=== PATIENT | male | born 1990 | race Two or more races ===

== ENCOUNTER 2017-06-20 08:11 | Emergency (ER) | payer SELFPAY ==
[2017-06-20 08:17] VITALS: BP 132/61; BMI 28.3
--- NOTE | 2017-06-20 08:41 | DR.GENAD ---
HPI - PCP Primary Care Physician: manas - HPI Comment HPI Comment: PAIN WORSE TODAY. - Complaint/Symptoms Chief Complaint Doctors Comments: PAIN LEFT FLANK AND BETWEEN SHOULDER BLADE LOWER ASPECT TIMES ONE DAY. PAIN INCREASE WITH DEEP BREATHING. NO FEVER. NO DYSURIA. Chief Complaint:: patient stated he has been hurting between his shoulder blades in his upper back since yesterday. stated it hurts to take a deep breath. - Nurses notes reviewed Nurses Notes Review: Yes - Source History Provided: Patient - Mode of Arrival Mode of Arrival: Ambulatory - Timing Onset of Chief Complaint: 06/19/17 Came on: Suddenly - Duration Duration: Constant Duration: Days - Severity Severity: Moderate PMH - PMH Past Medical History: No Past Surgical History: Yes Surgical History: Ortho Surgery - Family History History of Family Medical Conditions: No - Social History Does patient currently use any type of tobacco product: No Have you used tobacco products in the last 12 months: No Type of Tobacco Use: None Does any household member use tobacco: No Alcohol Use: Rarely Do you use any recreational Drugs:: No Lives With: Family Lives Where: Home - infectious screening In the last 2 months have you had wt loss of >10#?: NO Have you had fever, night sweats or hemotysis?: No Have you traveled outside the country in the last 6 months?: No Isolation: Standard ROS - Review of Systems Constitutional: No Symptoms Reported Eyes: No Symptoms Reported ENTM: No Symptoms Reported Respiratoy: No Symptoms Reported Cardiovascular: No Symptoms Reported Gastrointestinal/Abdominal: No Symptoms Reported Genitourinary: No Symptoms Reported Neurological: No Symptoms Reported Musculoskeletal: No Symptoms Reported, Back Pain, Muscle Pain, Back Integumentary: No Symptoms Reported Hematologic/Lymphatic: No Symptoms Reported Endocrine: No Symptoms Reported All Other Systems: Reviewed and Negative PE - Vital Signs Vitals: Temperature 98.4 F Pulse Rate 81 Respiratory Rate 18 Blood Pressure 132/61 O2 Sat by Pulse Oximetry 99 - General Limitations: No Limitations General Appearance: Alert - Head Head Exam: Normal Inspection - Eyes Eye exam: Normal Appearance - ENT ENT Exam: Normal External Ear Exam External Ear Exam: Normal External Inspection TM/Canal Exam: Bilateral Normal Nose Exam: Normal Nose Exam Mouth Exam: Normal Inspection Throat Exam: Normal Inspection - Neck Neck Exam: Normal Inspection - Chest Chest Inspection: Symmetric Chest Wall Rise - Respiratory Respiratory Exam: Normal Lung Sounds Bilat - Cardiovascular Cardiovascular Exam: Regular Rate, Normal Rhythm, Normal Heart Sounds - Abdominal Exam Abdominal Exam: Normal Bowel Sounds, Soft. negative: Tenderness - Extremities Extremities Exam: Normal Inspection - Back Back Exam: (R) CVA Tenderness, Paraspinal Tenderness - Neurologic Neurological Exam: Alert, Oriented X3 - Psychiatric Psychiatric Exam: Normal Affect, Normal Mood - Skin Skin Exam: Normal Color MDM - Additional Information Additional Information Obtained From: Family - Differential Diagnosis Differential Diagnosis: BACK PAIN, UTI, KIDNEY STONE, MUSCULOSKETAL PAIN Course - Treatment Treatment: SEE ORDERS. - Education/Counseling Education/Counseling: Patient, Family, Education Educated On: Diagnosis, Needs for Follow Up ROR - Labs Reviewed Laboratory Results Reviewed?: Yes Result Diagrams: 06/20/17 08:55 06/20/17 08:55 Laboratory: WBC 7.4 X10^3/uL (3.6-10.0) 06/20/17 08:55 RBC 4.71 X10^6/uL (4.7-6.0) 06/20/17 08:55 Hgb 14.3 g/dL (13.5-18.0) 06/20/17 08:55 Hct 41.9 % (42.0-54.0) L 06/20/17 08:55 MCV 89.0 fL (80.0-100.0) 06/20/17 08:55 MCH 30.4 pg (27.0-34.0) 06/20/17 08:55 MCHC 34.2 g/dL (33.0-35.0) 06/20/17 08:55 RDW 13.0 % (11.6-16.5) 06/20/17 08:55 Plt Count 223 X10^3/uL (150.0-450.0) 06/20/17 08:55 MPV 9.6 fL (7.4-11.0) 06/20/17 08:55 Neut % 47.2 % (42.0-75.0) 06/20/17 08:55 Lymph % 37.3 % (21.0-51.0) 06/20/17 08:55 Mower % 8.8 % (0.0-13.0) 06/20/17 08:55 Eos % 6.1 % (0.9-2.9) H 06/20/17 08:55 Baso % 0.6 % (0.2-1.0) 06/20/17 08:55 Neut # 3.5 x10^3/uL (2.2-4.8) 06/20/17 08:55 Lymph # 2.8 X10^3/uL (1.3-2.9) 06/20/17 08:55 Mower # 0.7 x10^3/uL (0.3-0.8) 06/20/17 08:55 Eos # 0.5 x10^3/uL (0.0-0.2) H 06/20/17 08:55 Baso # 0.0 X10^3/uL (0.0-0.1) 06/20/17 08:55 Absolute Nucleated RBC 0.0 /100WBC 06/20/17 08:55 Sodium 140 mmol/L (136-145) 06/20/17 08:55 Corrected Sodium 140 mmol/L (136-145) 06/20/17 08:55 Potassium 4.4 mmol/L (3.5-5.1) 06/20/17 08:55 Chloride 101 mmol/L (98-107) 06/20/17 08:55 Carbon Dioxide 26.1 mmol/L (21-32) 06/20/17 08:55 BUN 11 mg/dL (7-18) 06/20/17 08:55 Creatinine 0.86 mg/dL (0.70-1.30) 06/20/17 08:55 Est GFR (MDRD) Af Amer > 60 (>60) 06/20/17 08:55 Est GFR (MDRD) Non-Af > 60 (>60) 06/20/17 08:55 Glucose 113 mg/dL (65-99) H 06/20/17 08:55 Calcium 8.8 mg/dL (8.5-10.1) 06/20/17 08:55 Corrected Calcium TNP 06/20/17 08:55 Total Bilirubin 0.30 mg/dL (0.2-1.0) 06/20/17 08:55 AST 14 Units/L (15-37) L 06/20/17 08:55 ALT 23 Units/L (12-78) 06/20/17 08:55 Alkaline Phosphatase 128 Units/L (46-116) H 06/20/17 08:55 Total Protein 8.3 g/dL (6.4-8.2) H 06/20/17 08:55 Albumin 4.1 g/dL (3.4-5.0) 06/20/17 08:55 Globulin 4.2 g/dL (2.5-4.5) 06/20/17 08:55 Albumin/Globulin Ratio 1.0 Ratio (1.1-2.1) L 06/20/17 08:55 Specimen Type Clean catch urine 06/20/17 09:02 Urine Color Yellow (YELLOW) 06/20/17 09:02 Urine Appearance Clear (CLEAR) 06/20/17 09:02 Urine pH 7.0 (5.0 - 8.0) 06/20/17 09:02 Ur Specific [place] 1.015 (1.000-1.030) 06/20/17 09:02 Urine Protein Negative (NEGATIVE) 06/20/17 09:02 Urine Glucose (UA) Negative (NEGATIVE) 06/20/17 09:02 Urine Ketones Negative (NEGATIVE) 06/20/17 09:02 Urine Occult Blood Negative (NEGATIVE) 06/20/17 09:02 Urine Nitrite Negative (NEGATIVE) 06/20/17 09:02 Urine Bilirubin Negative (NEGATIVE) 06/20/17 09:02 Urine Urobilinogen Normal (NORMAL) 06/20/17 09:02 Ur Leukocyte Esterase Negative (NEGATIVE) 06/20/17 09:02 Urine RBC Rare /HPF (NEGATIVE) 06/20/17 09:02 Urine WBC Rare /HPF (NEGATIVE) 06/20/17 09:02 Ur Squamous Epith Cells Rare /HPF (NEGATIVE) 06/20/17 09:02 Amorphous Sediment Trace /HPF (NEGATIVE) 06/20/17 09:02 Urine Bacteria Negative /HPF (NEGATIVE) 06/20/17 09:02 Ur Culture Indicated? No/not indicated 06/20/17 09:02 - XRAY XRAY Interpreted by: Radiologist XRAY Findings: REPORT DISCUSS WITH PATIENT. - Diagnosis Discharge Problem: Back pain Qualifiers: Back pain location: low back pain Chronicity: acute Back pain laterality: bilateral Sciatica presence: without sciatica Qualified Code(s): M54.5 - Low back pain - Discharge Plan Disposition: 01 HOME, SELF-CARE Condition: Stable Prescriptions: Cyclobenzaprine HCl [FLEXERIL 10 MG *] 10 mg PO TID #20 tab Ibuprofen [MOTRIN TAB 800 MG *] 800 mg PO Q8H PRN #30 tab PRN Reason: Pain/Inflammation Ranitidine HCl [ZANTAC TAB 150 MG *] 150 mg PO BID #60 tab - Follow ups/Referrals Follow ups/Referrals: RICHIE ACEVEDO [STAFF PHYSICIAN] - 2 days [facility],None [Primary Care Provider] - 2 days - Instructions Instructions: Back Pain, Adult, [id number] Additional Instructions: RETURN TO ED IF WORSE.
[2017-06-20] MEDS ORDERED: NS 1000 ML 1,000 ML ONE (08:44)
[2017-06-20] MEDS ORDERED: TORADOL 30 MG VIAL IVP ONE (08:46)
[2017-06-20] MEDS ORDERED: TORADOL 30 MG VIAL ONE (08:47)
[2017-06-20] MEDS ORDERED: NS 1000 ML 1,000 ML IV ONE (08:47)
[2017-06-20 09:13] LABS: BASOPHILS % (AUTO) 0.6 % (0.2-1.0); EOSINOPHILS # (AUTO) 0.5 x10^3/uL (0.0-0.2); EOSINOPHILS % (AUTO) 6.1 % (0.9-2.9); HEMATOCRIT 41.9 % (42.0-54.0); HEMOGLOBIN 14.3 g/dL (13.5-18.0); LYMPHOCYTES # (AUTO) 2.8 X10^3/uL (1.3-2.9); LYMPHOCYTES % (AUTO) 37.3 % (21.0-51.0); MEAN CORPUSCULAR HEMOGLOBIN 30.4 pg (27.0-34.0); MEAN CORPUSCULAR HGB CONC 34.2 g/dL (33.0-35.0); MEAN PLATELET VOLUME 9.6 fL (7.4-11.0); MONOCYTES # (AUTO) 0.7 x10^3/uL (0.3-0.8); MONOCYTES % (AUTO) 8.8 % (0.0-13.0); NEUTROPHILS # (AUTO) 3.5 x10^3/uL (2.2-4.8); NEUTROPHILS % (AUTO) 47.2 % (42.0-75.0); PLATELET COUNT 223 X10^3/uL (150.0-450.0); RED BLOOD COUNT 4.71 X10^6/uL (4.7-6.0); WHITE BLOOD COUNT 7.4 X10^3/uL (3.6-10.0)
[2017-06-20 09:21] LABS: BILIRUBIN,URINE NEGATIVE (NEGATIVE); BLOOD/HEMOGLOBIN,URINE NEGATIVE (NEGATIVE); GLUCOSE, URINE NEGATIVE (NEGATIVE); KETONES,URINE NEGATIVE (NEGATIVE); LEUKOCYTE ESTERASE ,URINE NEGATIVE (NEGATIVE); NITRITES,URINE NEGATIVE (NEGATIVE); PROTEIN,URINE NEGATIVE (NEGATIVE); UROBILINOGEN,URINE NORMAL (NORMAL)
[2017-06-20 09:30] LABS: ALANINE AMINOTRANSFERASE 23 Units/L (12-78); ALBUMIN 4.1 g/dL (3.4-5.0); ALKALINE PHOSPHATASE 128 Units/L (46-116); ASPARTATE AMINO TRANSFERASE 14 Units/L (15-37); BLOOD UREA NITROGEN 11 mg/dL (7-18); CALCIUM 8.8 mg/dL (8.5-10.1); CARBON DIOXIDE 26.1 mmol/L (21-32); CHLORIDE 101 mmol/L (98-107); COR NA(FOR HYPERGLY) 140 mmol/L (136-145); CREATININE 0.86 mg/dL (0.70-1.30); SODIUM 140 mmol/L (136-145); TOTAL PROTEIN 8.3 g/dL (6.4-8.2); eGFR BLACK RACES > 60 (>60); eGFR NON BLACK RACES > 60 (>60)
--- NOTE | 2017-06-20 09:43 | CT ---
HISTORY: Right flank pain and mid back pain Study: CT abdomen and pelvis without contrast Comparison: None Technique: Multiple axial images of the abdomen and pelvis were obtained from the lung bases to the pubic symphy sis without the administration of IV contrast. Findings: The visualized portions of the lung bases are unremarkable. There is no evidence of obstructive uropathy. No calyceal or ureteral stones are identified. There is no hydronephrosis. The liver is unremarkable in appearance. The gallbladder is unremarkable in its C T appearance. The pancreas, spleen, and bilateral adrenal glands are unremarkable as well. No signifi cant mesenteric lymphadenopathy or stranding can be observed. No free fluid or free air is seen with in the abdomen. No bowel wall thickening or bowel dilatation is present. The colon is unremarkable. The appendix is normal in appearance and without inflammatory change. The urinary bladder is grossly unremarkable. The bony structures are grossly intact. IMPRESSION: 1. No acute intra-abdominal abnormality. Specifically, no evidence of obstructive uropathy. Reported By:
[2017-06-20 09:47] LABS: AMORPHOUS SEDIMENT,UR TRACE /HPF (NEGATIVE); APPEARANCE,URINE CLEAR (CLEAR); BACTERIA,URINE NEGATIVE /HPF (NEGATIVE); COLOR,URINE YELLOW (YELLOW); RBC,URINE RARE /HPF (NEGATIVE); SQUAMOUS EPITHELIAL CELL,UR RARE /HPF (NEGATIVE)
== END 2017-06-20 10:31 | disposition home or self-care (01) ==
LOC: ER 08:25
DX: M54.5 Low back pain (principal)
CPT/HCPCS: 36415; 74176; 80053; 81001; 85025; 96365; 96367; 96374; 99283; 99284; A4222; J1885